=== PATIENT | male | born 1995 | race Caucasian/White ===

== ENCOUNTER 2020-06-09 07:08 | Inpatient (IN) | payer OTHER ==
[~2020-06-09 07:08] MED LIST: CYCLOBENZAPRINE5 MG PO; IBUPROFEN800 MG PO
[2020-06-09 08:05] LABS: BASOPHIL 0.1 % (0-2); EOSINOPHIL 1.1 % (0-5); HCT 46.6 % (42.0-52.0); LYMPHOCYTE 12.9 % (15-48); MCH 28.2 pg (25.0-31.0); MCHC 32.2 g/dL (32.0-36.0); MCV 87.8 fL (78.0-100.0); MONOCYTE 7.7 % (0-12); MPV 11.1 fL (6.0-9.5); NEUTROPHIL 78.1 % (41-80); NRBC 0; PLT 240 K/uL (150-400); RBC 5.31 M/uL (4.70-6.00); RDW 12.3 % (11.5-14.0); WBC 8.2 K/uL (4.0-10.5)
[2020-06-09 08:21] LABS: ALBUMIN 3.7 g/dL (3.4-5.0); BILIRUBIN - TOTAL 0.6 mg/dL (0.2-1.0); BUN/CREAT RATIO (CALC) 19.8 RATIO; CREATININE 0.81 mg/dL (0.67-1.17); GLOBULIN (CALCULATION) 4.3 g/dL
[2020-06-09 08:28] LABS: BILIRUBIN NEGATIVE (NEGATIVE); BLOOD NEGATIVE Ery/uL (NEGATIVE); CLARITY CLEAR (CLEAR); COLOR YELLOW (YELLOW); GLUCOSE (U) NORMAL (NORMAL); LEUKOCYTES NEGATIVE Leu/uL (NEGATIVE); NITRITE NEGATIVE (NEGATIVE); PROTEIN NEGATIVE (NEGATIVE); SPECIFIC GRAVITY >=1.030 (1.001-1.030); UROBILINOGEN 0.2 mg/dL (0.2-1.0); pH 5.5 (5.0-9.0)
[2020-06-10 08:21] LABS: HCT 41.7 % (42.0-52.0); HGB 13.5 g/dl (13.2-18.0); MCH 28.6 pg (25.0-31.0); MCHC 32.4 g/dL (32.0-36.0); MCV 88.3 fL (78.0-100.0); MPV 10.8 fL (6.0-9.5); RBC 4.72 M/uL (4.70-6.00); RDW 11.9 % (11.5-14.0); WBC 8.7 K/uL (4.0-10.5)
[2020-06-10 08:36] LABS: BUN/CREAT RATIO (CALC) 17.2 RATIO; CREATININE 0.87 mg/dL (0.67-1.17); POTASSIUM 4.6 mmol/L (3.5-5.1)
[2020-06-11] MEDS ORDERED: OXY-IR 5MG5 MG PO (14:56)
== END 2020-06-11 15:30 | disposition home or self-care (01) | DRG 331 ==
LOC: FER 07:08 → FMS 08:37
PROVIDERS: Emergency Medicine; Student in an Organized Health Care Education/Training Program; ADMIT Internal Medicine
PROC: 0DB80ZZ Excision of Small Intestine, Open Approach (ICD-10-PCS; principal; 2020-06-09 14:00)
PROC: 0DTJ0ZZ Resection of Appendix, Open Approach (ICD-10-PCS; 2020-06-09 14:00)
DX: Q43.0 Meckel's diverticulum (displaced) (hypertrophic) (principal); F17.200 Nicotine dependence, unspecified, uncomplicated; Z20.822 Contact with and (suspected) exposure to COVID-19
CPT/HCPCS: 36415; 71045; 80048; 80053; 81003; 85025; 93005; J1100; J1170; J1885; J2250; J2405; J2543; J2704; J2710; J3010; J7030; J7120; U0002